=== PATIENT | female | born 1990 | race American Indian/Alaskan Native ===

== ENCOUNTER 2018-04-27 03:18 | Emergency (ER) | payer MEDICAID ==
[2018-04-27] MEDS ORDERED: MOTRIN PO ONE (05:07)
[2018-04-27] MEDS ORDERED: NORCO 5/325 PO ONE (05:41)
[2018-04-27] MEDS ORDERED: NORCO 5/325 ONE (05:43)
--- NOTE | 2018-04-27 05:50 | Emergency Department Report ---
Blank Doc - Documentation Documentation: This is a 27-year-old female here complaining of toothache. She is here with her family member. Patient given Motrin 800 mg by mouth which did not help her pain so she was given [place] 5/325 2 tablets by mouth in emergency room. Patient is in room with her family waiting to be seen by provider.
--- NOTE | 2018-04-27 06:47 | Emergency Department Report ---
HPI - General Chief Complaint: Dental/Oral Time Seen by Provider: 04/27/18 05:49 - HPI HPI: Room 34 The patient is a 27-year-old female presenting with chief complaint toothache. The patient states she had pain in her left lower posterior teeth for the past 2 days. Patient states yesterday the pain increased. Patient denies any history of fever. Patient complains of pain with talking. The patient states she has not seen a dentist yet but has appointment to see one 04/30/2018 Location: Tooth #17 Duration: 2 days Quality: Pain Severity:03/09 Modifying factors: [see above] Context: [see above] Mode of transportation: [not driving] ED Past Medical Hx - Past Medical History Previous Medical History?: No - Surgical History Past Surgical History?: No - Family History Family history: no significant - Social History Smoking Status: Current Every Day Smoker (2/3 packs per day) Substance Use Type: None (denies illicit drug use) - Medications Home Medications: Home Medications Medication Instructions Recorded Confirmed Last Taken Type Clindamycin [Clindamycin CAP] 300 mg PO Q6H #28 capsule 04/27/18 Unknown Rx HYDROcodone/APAP 5-325 [[place] 1 - 2 each PO Q6HR PRN #15 tablet 04/27/18 Unknown Rx 5/325] Ibuprofen [Motrin 800 MG tab] 800 mg PO Q8HR PRN #20 tablet 04/27/18 Unknown Rx ED Review of Systems ROS: Stated complaint: TOOTHACHE Other details as noted in HPI Constitutional: denies: fever Eyes: denies: eye pain ENT: dental pain Respiratory: no symptoms reported Cardiovascular: denies: chest pain Endocrine: no symptoms reported Gastrointestinal: denies: abdominal pain Genitourinary: denies: dysuria Musculoskeletal: denies: back pain Neurological: denies: headache Physical Exam - Physical Exam Vital Signs: Vital Signs 04/27/18 04/27/18 04/27/18 03:19 05:45 06:11 Temperature 99.3 F Pulse Rate 68 Respiratory 17 18 18 Rate Blood Pressure 170/104 O2 Sat by Pulse 99 Oximetry Physical Exam: GENERAL: The patient is well-developed well-nourished female sleeping on stretcher not appearing to be in acute distress. [] HEENT: Normocephalic. Atraumatic. Extraocular motions are intact. Patient has moist mucous membranes. Tooth #17 eroded with dental caries NECK: Supple. No stridor CHEST/LUNGS: Clear to auscultation. There is no respiratory distress noted. HEART/CARDIOVASCULAR: Regular. There is no tachycardia. There is no gallop rub or murmur. SKIN: There is no rash. There is no edema. There is no diaphoresis. NEURO: The patient is awake, alert, and oriented. The patient is cooperative. The patient has normal speech MUSCULOSKELETAL: There is no evidence of acute injury. ED Course Vital Signs 04/27/18 04/27/18 04/27/18 03:19 05:45 06:11 Temperature 99.3 F Pulse Rate 68 Respiratory 17 18 18 Rate Blood Pressure 170/104 O2 Sat by Pulse 99 Oximetry ED Medical Decision Making - Differential Diagnosis dental caries Critical care attestation.: If time is entered above; I have spent that time in minutes in the direct care of this critically ill patient, excluding procedure time. ED Disposition Clinical Impression: Dental caries, Acute oral pain Disposition: TO HOME OR SELFCARE Is pt being admited?: No Does the pt Need Aspirin: No Condition: Stable Instructions: Dental Caries (ED), Toothache (ED) Additional Instructions: Return to the emergency department immediately should you develop worsening symptoms, fever, inability to tolerate food or liquid or any other concerns. Prescriptions: Clindamycin [Clindamycin CAP] 300 mg PO Q6H #28 capsule HYDROcodone/APAP 5-325 [[place] 5/325] 1 - 2 each PO Q6HR PRN #15 tablet PRN Reason: Pain Ibuprofen [Motrin 800 MG tab] 800 mg PO Q8HR PRN #20 tablet PRN Reason: Pain, Moderate (4-6) Referrals: PRIMARY CARE,MD [Primary Care Provider] - 3-5 Days [facility] [Outside] - 3-5 Days Time of Disposition: 06:50
[2018-04-27 07:07] VITALS: BP 130/86
== END 2018-04-27 07:06 | disposition home or self-care (01) ==
LOC: ED 03:18
DX: K02.9 Dental caries, unspecified (principal); F17.210 Nicotine dependence, cigarettes, uncomplicated
CPT/HCPCS: 99282

== ENCOUNTER 2018-09-30 22:47 | Emergency (ER) | payer MEDICAID, OTHER ==
[2018-09-30 22:53] VITALS: BP 153/86
--- NOTE | 2018-09-30 22:55 | Emergency Department Report ---
Chief Complaint: Shoulder Injury Stated Complaint: RIGHT SHOULDER INJURY Time Seen by Provider: 09/30/18 22:51 - HPI History of Present Illness: Pt is c/o right shoulder pain around 12:30 pm today s/p falling off of a hover board Pt states she was holding onto the door knob with her right hand and felt her shoulder "pop" once she fell off the hover board she denies any numbness, tingling, able to move all digits neurovascularly intact MSE complete MSE screening note: Focused history and physical exam performed. Due to findings the following was ordered: xr right shoulder ED Disposition for MSE Condition: Stable
--- NOTE | 2018-09-30 23:31 | XRay Report ---
PROCEDURE: XR SHOULDER 2+V RT TECHNIQUE: RIGHT shoulder radiographs including AP views in internal and external rotation and abduc tion. CPT 19011 HISTORY: ground level fall, right shoulder pain COMPARISONS: None . FINDINGS: Fracture (s) and/or Dislocation(s): None . Joint space(s): Normal . Soft tissues: Normal . Bone mineralization: Normal . Foreign bodies: None . IMPRESSION: Normal Examination . This document is electronically signed by Baltazar Taylor MD., September 30 2018 11:28:46 PM ET
[2018-10-01] MEDS ORDERED: PERCOCET 5/325 PO STA (00:28)
--- NOTE | 2018-10-01 00:51 | Emergency Department Report ---
Upper Extremity - HPI Chief Complaint: Shoulder Injury Stated Complaint: RIGHT SHOULDER INJURY Time Seen by Provider: 09/30/18 22:51 Upper Extremity: Right Shoulder Occurred When: Today Mechanism: Fall (she was riding a afebrile boardlike-like device while holding onto the door and lost her balance while losing her balance. She tried to refrain from falling while holding the door with Dr. Sheridan burning and tearing sensation to her right shoulder, which ultimately led in significant pain causing her to leave her arm and foot flexed adductor position since about 12:30 today. No numbness, tingling, but pain is worse with range of motion of the elbow and shoulder in certain areas of the neck.) Symptoms: Yes Pain with Movement, Yes Limited Range of Movement, No Deformity, No Numbness, No Weakness, No Swelling, No Bruising/Ecchymosis, No Laceration or Abrasion ED Review of Systems ROS: Stated complaint: RIGHT SHOULDER INJURY Other details as noted in HPI Constitutional: denies: chills, fever Eyes: denies: eye pain, eye discharge, vision change ENT: denies: ear pain, throat pain Respiratory: denies: cough, shortness of breath, wheezing Cardiovascular: denies: chest pain, palpitations Endocrine: no symptoms reported Gastrointestinal: denies: abdominal pain, nausea, diarrhea Genitourinary: denies: urgency, dysuria, discharge Musculoskeletal: arthralgia. denies: back pain, joint swelling Skin: denies: rash, lesions Neurological: denies: headache, weakness, paresthesias Psychiatric: denies: anxiety, depression Hematological/Lymphatic: denies: easy bleeding, easy bruising ED Past Medical Hx - Past Medical History Previous Medical History?: No - Surgical History Past Surgical History?: No - Social History Smoking Status: Current Every Day Smoker Substance Use Type: None - Medications Home Medications: Home Medications Medication Instructions Recorded Confirmed Last Taken Type Clindamycin [Clindamycin CAP] 300 mg PO Q6H #28 capsule 04/27/18 Unknown Rx HYDROcodone/APAP 5-325 [[place] 1 - 2 each PO Q6HR PRN #15 tablet 04/27/18 Unknown Rx 5/325] Ibuprofen [Motrin 800 MG tab] 800 mg PO Q8HR PRN #20 tablet 04/27/18 Unknown Rx Ketorolac [Toradol] 10 mg PO Q6H PRN #20 tablet 10/01/18 Unknown Rx Upper Extremity Exam - Exam General: Vital signs noted. No distress. Alert and acting appropriately. Head and Torso: No HEENT Abnormality, No Neck Tenderness, No Chest/Lungs Abnormality, No Abdominal Tenderness, No Back Tenderness Shoulder Exam: Yes Shoulder Tenderness (unable to perform Neer's test test due to the pain. Patient cooperation. Full range of motion of the hands and wrists and her pet stylist strength is 5 over 5. A significant tenderness with palpation to the posterior and lateral deltoid region and in the axillary region.), Yes Normal Range of Motion in Shoulder, Yes AC Joint Tenderness, No Clavicle Tenderness, No Shoulder Deformity Arm Exam: No Arm/Humerus Tenderness, No Arm Deformity Elbow: Yes Normal Range of Motion in Elbow, No Elbow Tenderness, No Elbow Defo rmity Forearm: No Forearm Tenderness, No Forearm Deformity, No Pain with Pronation, No Pain with Supination Wrist: Yes Normal ROM in Wrist, No Wrist Tenderness, No Wrist Deformity, No Snuffbox Tenderness, No Pain with Axial Thumb Compression Hand: Yes Normal ROM in Digit(s), No Hand Tenderness, No Hand Deformity, No Digit Tenderness, No Digit(s) Deformity, No Tendon Dysfunction CMS Exam: No Broken Skin, No Normal Distal Pulses, No Normal Capillary Refill, No Normal Distal Sensation ED Course Vital Signs 09/30/18 22:51 Temperature 98.0 F Pulse Rate 91 H Respiratory 18 Rate Blood Pressure 153/86 O2 Sat by Pulse 99 Oximetry Critical care attestation.: If time is entered above; I have spent that time in minutes in the direct care of this critically ill patient, excluding procedure time. ED Disposition Clinical Impression: Right shoulder strain Disposition: DC- TO HOME OR SELFCARE Is pt being admited?: No Does the pt Need Aspirin: No Condition: Stable Instructions: Rotator Cuff Injury (ED) Prescriptions: Ketorolac [Toradol] 10 mg PO Q6H PRN #20 tablet PRN Reason: Pain Referrals: VIPUL APPIAH MD [Primary Care Provider] - 3-5 Days LAURA WHEATLEY MD [Staff Physician] - 3-5 Days
== END 2018-10-01 01:17 | disposition home or self-care (01) ==
LOC: ED 22:47
DX: S46.911A Strain of unspecified muscle, fascia and tendon at shoulder and upper arm level, right arm, initial encounter (principal); F17.200 Nicotine dependence, unspecified, uncomplicated; Z88.0 Allergy status to penicillin; W01.190A Fall on same level from slipping, tripping and stumbling with subsequent striking against furniture, initial encounter; Y93.89 Activity, other specified; Y92.89 Other specified places as the place of occurrence of the external cause; Y99.8 Other external cause status
CPT/HCPCS: 99284